=== PATIENT | male | born 1995 | race Native Hawaiian/Other Pacific Islander ===

== ENCOUNTER 2022-09-29 10:02 | Outpatient (CLI) | payer BC ==
[~2022-09-29 10:02] MED LIST: AMOX500C85 PO; HYDR25TA15 PO; LORA10TA3 PO; MEDROL DOSEPAK4 MG OR
== END 2022-09-29 19:30 | disposition home or self-care (01) ==
LOC: LABW 10:02
PROVIDERS: ATTEND Dermatology
DX: L02.92 Furuncle, unspecified (principal); Z79.899 Other long term (current) drug therapy
CPT/HCPCS: 36415; 80076